=== PATIENT | female | born 2005 | race Two or more races ===

== ENCOUNTER 2025-06-05 14:51 | Emergency (ER) | payer BC, MEDICAID, SELFPAY ==
[2025-06-05] VITALS (24 sets, daily range): BP systolic 83–129; BP diastolic 51–81; PULSE 65–100; RESP 10–25; TEMP 36.8–36.9; O2SAT 94–100; BMI 18.5
--- NOTE | 2025-06-05 15:16 | XR_ITS ---
Examination: AP chest single view Technique one AP portable upright chest single view Date and time: June 05, 2025 1534 hours INDICATIONS: Chest pain shortness of breath today. FINDINGS: Normal heart size The lungs are clear. The osseous structures are intact IMPRESSION: No active disease.
--- NOTE | 2025-06-05 15:18 | EDNOTE_ITS ---
Nausea/Vomit./Diarrhea-RME/HPI General Chief complaint: Nausea/Vomiting/Diarrhea Stated complaint: N/V Time Seen by Provider: 06/05/25 15:10 Source: patient Arrival date/time: 06/05/25 14:51 Mode of arrival: EMS Limitations: no limitations RME / HPI RME / HPI Narrative: 19-year-old female with no chronic medical history is here today with a 1 day history of nausea, vomiting, and chest pain. She has generalized fatigue additionally. She denies any diarrhea. Has no urinary complaints. Has no fevers or chills. She has no other acute complaints or concerns. Related Data Previous Rx's ?Medication ?Instructions ?Recorded loratadine 10 mg capsule 10 mg PO QDAY #14 caps 08/31 ondansetron 4 mg disintegrating 4 mg PO Q6H PRN nausea and 03/21/23 tablet vomiting #30 tabs naproxen 500 mg tablet 500 mg PO BID PRN pain #30 t abs 08/18/23 ondansetron 4 mg disintegrating 4 mg PO Q8H PRN nausea and 08/18/23 tablet vomiting #20 tabs tamsulosin 0.4 mg capsule (Flomax) 0.4 mg PO QDAY #30 caps 08/18/23 cephalexin 500 mg capsule 500 mg PO Q6H 7 days #28 cap s 06/05/25 Allergies Allergy/AdvReac Type Severity Reaction Status Date / Time No Known Allergies Allergy Verified 03/21/23 10:51 Review of Systems Review of Systems Systems Reviewed: All systems reviewed, normal except as documented ED Exam General Limitations: Present no limitations General appearance: Present alert Head Head exam: Present atraumatic Eye Eye exam: Present normal appearance, PERRL and EOMI ENT ENT exam: Present normal exam, normal oropharynx and mucous membranes moist Neck Neck exam: Present normal inspection, full ROM and trachea midline Chest Chest inspection: Present normal inspection and symmetric chest wall rise Respiratory Respiratory exam: Present normal lung sounds bilaterally Cardiovascular Cardiovascular exam: Present regular rate, normal rhythm and normal heart sounds Abdominal Exam Abdominal exam: Present soft and normal bowel sounds Extremities Exam Extremities exam: Present normal inspection and full ROM Back Exam Back exam: Present normal inspection and full ROM Neurological Exam Neurological exam: Present alert and oriented X3 Psychiatric Psychiatric exam: Present other (When patient arrived, she was tachypneic, crying, and very anxious appearing. ) Skin Skin exam: Present warm, dry, intact and normal color Course Course Course Narrative: At approximately 1740 5 PM, patient provided urine sample. Will send this off to the lab. Patient returned to room and developed abdominal pain, nausea, vomiting. I reviewed her labs and patient has a leukocytosis of 1.9k. She has a mild hypokalemia at 3.2. Glucose 163. Metabolic panel is otherwise unremarkable. We will give her IV potassium, a bolus of normal saline, and Reglan for her symptoms. Will obtain CT abdomen pelvis to rule out emergent intra-abdominal pelvic pathology. Quality Measures none Orders Category Date Time Status CT Screening NOW Care 06/05/25 17:[address] abdomen pelvis w con Stat Exams 06/05/25 17:52 Completed XR chest 1V Stat Exams 06/05/25 15:16 Completed Alcohol, Blood Medical Stat Lab 06/05/25 15:52 Completed CBC Stat Lab 06/05/25 15:52 Completed CMP [Comprehensive Metabolic Panel] Stat Lab 06/05/25 15:52 Completed Drug Screen,Urine Stat Lab 06/05/25 17:51 Completed HCG,Qualitative Serum Stat Lab 06/05/25 15:52 Completed Lipase Stat Lab 06/05/25 15:52 Completed UA, C/S IF [Urinalysis, C/S if Indicated] Stat Lab 06/05/25 17:51 Completed Urine Culture Stat Lab 06/05/25 17:51 Received Metoclopramide Inj [Reglan Inj] Med 06/05/25 17:52 Discontinued 10 mg IVP X1 ONE Morphine Inj Med 06/05/25 15:19 Discontinued 2 mg IVP X1 ONE Morphine Inj Med 06/05/25 15:16 Discontinued 4 mg IVP X1 ONE Ondansetron Inj [Zofran Inj] Med 06/05/25 15:16 Discontinued 4 mg IVP X1 ONE POTASSIUM CHL 10 mEq IVPB [Kcl Ivpb] Med 06/05/25 17:54 Discontinued 10 meq in 100 ml IV Q1H Sodium Chloride 0.9% 1000 ml [Ns] 1,000 ml Med 06/05/25 17:51 Discontinued IV 999 mls/hr cefTRIAXone/D5w 1gm IV premix [Rocephin/D5w 1gm IV Med 06/05/25 17:49 Discontinued premix] 1 gm in 50 ml IV X1 Vital Signs Vital signs: Vital Signs Temperature 98.4 F 06/05/25 14:55 Respiratory Rate 18 06/05/25 14:55 Blood Pressure 129/69 06/05/25 14:55 Pulse Oximetry (%) 99 06/05/25 14:55 Oxygen Delivery Method Room Air 06/05/25 14:55 Nausea/Vomiting/Diarrhea MDM Narrative MDM Narrative:: 19-year-old female with no chronic medical history is here today with a 1 day history of nausea, vomiting, and chest pain. She has generalized fatigue additi onally. She denies any diarrhea. Has no urinary complaints. Has no fevers or chills. She has no other acute complaints or concerns. On exam, patient's vital signs are stable. She was nontoxic-appearing although she was very anxious appearing. We use grounding techniques to help slow down her rate of breathing. As she tachypneic. We had her concentrate on slow breathing, describing things around the exam room, which seemed to improved her symptoms while we performed a workup. Patient's CBC revealed a leukocytosis at 17.9k, hemoglobin hematocrit are unremarkable. Her potassium was 3.2, glucose 163, metabolic panel was unremarkable. Patient's UA revealed 9 erythrocytes, 15 leukocytes, and 8 squamous epithelial cells. Urine drug screen was unremarkable. Alcohol level was unremarkable. Chest x-ray revealed clear expanded lungs any mass or infiltrate. CT of the abdomen pelvis was obtained which revealed no acute intra-abdominal abnormality. Discussed the patient's results with her. She is feeling better at this time. She will be discharged with a prescription of cephalexin. She is asked to follow-up with her primary care provider. Increase oral hydration. Consider c ognitive behavioral therapy, or evaluation by psychology, psychiatry. Return to the emergency room at anytime for any worsening or emergent changes. Patient data External records reviewed:: EMS form Clinical information provided by:: patient Social determinants that could affect healthcare access:: mental health Patient has the following chronic illnesses:: n/a How is presenting disease/condition affected by chronic disease/condition?: no chronic disease Evaluation data The following diagnostics were reviewed and interpreted by me:: lab results (Leukocytosis, mild hypokalemia, otherwise unremarkable) and radiology exam(s) (chest x-ray with clear spinal lungs no mass or infiltrate. CT of the abdomen pelvis reveals no acute intra-abdominal or pelvic abnormality) Lab and/or radiology exams considered but not ordered:: n/a Interpretation Summary: Leukocytosis, questionable UTI Medications / Prescriptions Medications / Prescriptions considered but not ordered:: n/a Medication administrations:: Medication Administration History Discontinued Medications Ceftriaxone Sodium/Dextrose (Rocephin/D5w 1gm Iv Premix) 1 gm in 50 mls @ 100 mls/hr IV X1 ONE Stop: 06/05/25 18:18 Last Infusion: 06/05/25 19:15 Dose: Infused Documented By: Admin: 06/05/25 18:15 Dose: 100 mls/hr Documented By: TEA Sodium Chloride (Ns) 1,000 mls @ 999 mls/hr IV .Q1H1M ONE Stop: 06/05/25 18:51 Last Infusion: 06/05/25 19:15 Dose: Infused Documented By: Admin: 06/05/25 18:14 Dose: 999 mls/hr Documented By: TEA Potassium Chloride (Kcl Ivpb) 10 meq in 100 mls @ 100 mls/hr IV Q1H SHINE Stop: 06/05/25 19:53 Last Infusion: 06/05/25 20:30 Dose: Infused Documented By: Admin: 06/05/25 19:30 Dose: 100 mls/hr Documented By: Infusion: 06/05/25 19:14 Dose: Infused Documented By: Admin: 06/05/25 18:14 Dose: 100 mls/hr Documented By: TEA Metoclopramide HCl (Metoclopramide Inj 5 Mg/Ml Vial 2 Ml) 10 mg IVP X1 ONE; Protocol Stop: 06/05/25 17:53 Last Admin: 06/05/25 18:14 Dose: 10 mg Documented By: TEA Morphine Sulfate (Morphine Sulf Inj 10 Mg/Ml Vial) 4 mg IVP X1 ONE Stop: 06/05/25 15:17 Last Admin: 06/05/25 16:59 Dose: Not Given Documented By: TEA Non-Admin Reason: ORDER CHANGED Morphine Sulfate (Morphine Sulf Inj 10 Mg/Ml Vial) 2 mg IVP X1 ONE Stop: 06/05/25 15:20 Last Admin: 06/05/25 19:30 Dose: Not Given Documented By: CG Non-Admin Reason: Contraindicated Ondansetron HCl (Ondansetron Inj 2 Mg/Ml Inj 2 Ml) 4 mg IVP X1 ONE; Protocol Stop: 06/05/25 15:17 Last Admin: 06/05/25 15:51 Dose: 4 mg Documented By: VRS See above Consultations Consultation(s) initiated? (list below): No Diagnosis Nausea Differential Diagnosis: gastroenteritis, drug-induced nausea and vomiting and dehydration Most likely diagnosis given after review of the tests above:: UTI, anxiety Admission Indicated Admission indicated?: not indicated Admission Request Was there a request for admission?: No Disposition Plan Disposition Plan: Discharge Discharge Attestation Discharge Attestation: The patient and all family members were given an opportunity to ask questions a nd understood the discharge instructions. Discharge instructions specifically effects, indications for sooner follow up or return to the emergency department, and the expected course of current diagnosis. Patient condition: Stable Discharge Plan Plan Patient Disposition: HOME (Self Care) Patient condition on transfer: Stable Prescriptions/Referrals Prescriptions/Med Rec: New cephalexin 500 mg capsule 500 mg PO Q6H 7 Days Qty: 28 0RF No Action loratadine 10 mg capsule 10 mg PO QDAY Qty: 14 0RF ondansetron 4 mg tablet,disintegrating 4 mg PO Q6H PRN (Reason: nausea and vomiting) Qty: 30 0RF naproxen 500 mg tablet 500 mg PO BID PRN (Reason: pain) Qty: 30 0RF ondansetron 4 mg tablet,disintegrating 4 mg PO Q8H PRN (Reason: nausea and vomiting) Qty: 20 0RF tamsulosin [Flomax] 0.4 mg capsule 0.4 mg PO QDAY Qty: 30 0RF Referrals: No Primary/Family,Physician [Primary Care Provider] - In 1 week Problem List Clinical Impression: UTI (urinary tract infection) Patient/Caregiver Discharge Instructions Education Materials: ED CYSTITIS Female Adult Additional Instructions: - Increase oral hydration. - Use the provided antibiotics every 6 hours for possible urinary tract infection. - Please follow-up your primary doctor within the next 1 to 2 weeks for close recheck. Consider close follow up for anxiety. Print Language: Swedish Stand Alone Forms: [employer] Award Info., Patient Portal Info Letter
[2025-06-05] MEDS: ONDANSETRON INJ 2 MG/ML INJ 2 ML 4 MG IVP (15:51)
[2025-06-05 16:06] LABS: Basophils # (Auto) 0.0 Thou/mm3 (0.0-0.2); Basophils % (Auto) 0 % (0-2.5); Eosinophils # (Auto) 0.0 Thou/mm3 (0.0-0.5); Eosinophils % (Auto) 0 % (0-10); Hematocrit 42.9 % (36.0-46.0); Hemoglobin 14.7 g/dL (12.0-16.0); Immature Granulocytes Auto 0.07 Thou/mm3 (0.00-0.00); Lymphocytes # (Auto) 0.9 Thou/mm3 (1.0-4.8); Lymphocytes % (Auto) 5 % (10-50); Mean Corpuscular HGB Conc 34.3 g/dl (31.0-37.0); Mean Corpuscular Hemoglobin 30.4 pg (25.0-35.0); Mean Corpuscular Volume 89 fL (80-100); Monocytes # (Auto) 0.5 Thou/mm3 (0.0-0.8); Monocytes % (Auto) 3 % (0-12); Neutrophils # (Auto) 16.3 Thou/mm3 (1.8-7.7); Neutrophils % (Auto) 92 % (37-80); Nucleated Red Blood Cell # 0.00 Thou/mm3 (0.00-0.00); Nucleated Red Blood Cell % 0 /100 WBC (0); Platelet Count 371 Thou/mm3 (140-440); RDW Standard Deviation 42.0 fL (36.4-46.3); Red Blood Count 4.83 Miln/mm3 (4.00-5.20); White Blood Count 17.9 Thou/mm3 (4.5-11.0)
[2025-06-05 16:15] LABS: HCG,Qualitative Serum Negative
[2025-06-05 16:32] LABS: Alanine Aminotransferase 10 U/L (10-49); Albumin, Serum 5.5 gm/dL (3.5-5.0); Albumin/Globulin Ratio 1.8 (1.2-2.2); Alcohol, Blood Medical < 3.0 mg/dL (0-10.0); Alkaline Phosphatase 66 U/L (46-116); Anion Gap 14 (7-16); Aspartate Amino Transferase 20 U/L (0-34); BUN/Creatinine Ratio 7 Ratio (12-20); Bilirubin,Total 0.6 mg/dL (0.3-1.2); Blood Urea Nitrogen 6 mg/dL (9-23); Calcium 9.8 mg/dL (8.3-10.6); Calcium (Corrected) 9.8 mg/dL (8.5-10.1); Carbon Dioxide 23.8 mMol/L (20.0-31.0); Chloride 105 mMol/L (98-107); Creatinine (Component) 0.9 mg/dL (0.6-1.3); Estimated Creatinine Clearance 70.0 mL/min (>60); Globulin 3.1 gm/dL (2.3-3.5); Glucose 163 mg/dL (74-106); Lipase 25 U/L (12-53); Osmolality,Calculated 286 (275-295); Potassium 3.2 mMol/L (3.4-5.1); Sodium 143 mMol/L (136-145); Total Protein 8.6 gm/dL (5.7-8.2); eGFR > 60 See Note
--- NOTE | 2025-06-05 17:52 | XR_ITS ---
Examination: CT abdomen with intravenous contrast CT pelvis with intravenous contrast 2-D coronal reconstructions 2-D sagittal reconstructions Date and time of exam:June 05, 2025, 2010 hours Comparison August 18, 2023 INDICATIONS: Abdominal pain nausea vomiting leukocytosis today, history kidney stones. CTDI: vol (mGy) 3.78. DLP: (mGycm) 182. Technique: Multiple axial sections of the abdomen and pelvis have been obtained. 64 slice high-resolution scanner used. 3 mm axial sections have been obtained, post intravenous injection 60 cc Isovue 370. 2-D sagittal, coronal reconstructions obtained. Low dose protocols were performed. One or more of the following dose reduction techniques were used; automated exposure control, adjustment of the mA and/or KV according to patient size, use of iterative reconstruction technique. Findings: No focal liver or splenic lesions No gallstones. No pancreatic mass. No renal or ureteral calculi, no hydronephrosis Aorta is normal in size Normal appendix Anteverted uterus Small bilateral ovarian follicular cysts Urinary bladder intact IMPRESSION: Normal appendix No acute process in the abdomen or pelvis
[2025-06-05 17:59] LABS: Collection Type, Urine Voided
[2025-06-05 18:08] LABS: Bilirubin,Urine Negative (Negative); Blood,Urine Negative (Negative); Clarity,Urine Clear (Clear/Hazy); Color,Urine Lt-Yellow (Lt Yel-Yel); Glucose, Urine Trace (Negative); Ketones,Urine 2+ (Negative); Leukocyte Esterase,Urine Positive (Negative); Nitrite,Urine Negative (Negative); PH,Urine 6.5 (5.0-7.0); Protein,Urine 1+ (Neg - Trace); RBC,Urine 9 /hpf (0-3); Specific Gravity,Urine 1.027 (1.001-1.035); Squamous Epithelial Cell,Urine 8 /hpf (0-5); Urobilinogen,Urine Negative mg/dL (0.0-1.0); WBC,Urine 15 /hpf (0-5)
[2025-06-05 18:10] LABS: Culture Indicated,Urine Yes
[2025-06-05] MEDS: POTASSIUM CHL 10 mEq IVPB 10 MEQ/100 ML BAG 100 MEQ IV ×2 (18:14→19:30)
[2025-06-05] MEDS: SODIUM CHLORIDE 0.9% 1000 ML 1,000 ML 999 ML IV (18:14)
[2025-06-05] MEDS: METOCLOPRAMIDE INJ 5 MG/ML VIAL 2 ML 10 MG IVP (18:14)
[2025-06-05] MEDS: cefTRIAXone/D5w 1gm IV premix 1 GM/50 ML BAG IV (18:15)
[2025-06-05 18:16] LABS: Amphetamine/Methamp Scrn,U Negative (Negative); Barbiturate Screen,Urine Negative (Negative); Benzodiazepines Screen,Urine Negative (Negative); Benzoylecgonine Screen, Ur Negative (Negative); Fentanyl Screen,Urine Negative (Negative); Opiate Screen,Urine Negative (Negative); THC Screen,Urine Negative (Negative)
--- NOTE | 2025-06-05 21:30 | PC.NURSE ---
Pt remains A/O x 3 with no c/o pain or acute distress, pt pending CT scan at this time, no other health issues noted or reported at this time
--- NOTE | 2025-06-05 23:30 | PC.NURSE ---
Pt remains A/O x 3 with no c/o conn or acute distress.
[2025-06-06] VITALS: BP 92/57; PULSE 71; RESP 14; TEMP 36.8; O2SAT 99
== END 2025-06-06 00:14 | disposition home or self-care (01) ==
PROVIDERS: Physician Assistant Medical; Emergency Provider Emergency Medicine
DX: N39.0 Urinary tract infection, site not specified (principal); R07.9 Chest pain, unspecified; R06.02 Shortness of breath; R10.9 Unspecified abdominal pain; R11.2 Nausea with vomiting, unspecified; Z87.442 Personal history of urinary calculi
CPT/HCPCS: 36415; 71045; 74177; 80053; 80307; 80320; 81001; 83690; 84703; 85025; 87086; 96365; 96366; 96375; 99283; A4649; J0696; J2405; J2765; J3480; J7030; Q9967; G0480